=== PATIENT | male | born 1940 | race Caucasian/White ===

== ENCOUNTER 2017-08-14 08:21 | Emergency (ER) | payer MEDICARE, OTHER ==
--- NOTE | 2017-08-14 09:02 | RAD ---
PORTABLE CHEST ONE VIEW: 08/14/2017 at 8:47 a.m. HISTORY: Cough. FINDINGS: The heart size is normal. The aorta is tortuous. There are changes of COPD and old granulomatous di sease. No lobar consolidation, pneumothorax, or pleural effusions are seen. There are post-op gusman es and metallic hardware in the right proximal humerus. IMPRESSION: No acute process. POS: [facility]
[2017-08-14 09:03] LABS: #Basophils 0.1 thou/uL (0.0-0.2); #Eosinphils 0.5 thou/uL (0.0-0.7); #Lymphocytes 1.7 thou/uL (1.20-3.40); #Monocytes 0.8 thou/uL (0.11-0.59); #Neutrophils 7.7 thou/uL (1.40-6.50); %Basophils 0.6 % (0.0-1.0); %Lymphocytes 15.6 % (21.0-51.0); %Monocytes 7.4 % (0.0-10.0); %Neutrophils 71.4 % (42.0-75.0); Mean Corpuscular HGB CONC 32.8 g/dL (32.0-36.0); Mean Corpuscular Hemoglobin 33.5 pg (27.0-31.0); Mean Platelet Volume 5.7 fL (7.4-10.4); Platelet Count 376 thou/uL (130-400); RBC Distribution Width 12.1 % (11.5-14.5); Red Blood Cell (RBC) Count 3.87 mill/uL (4.70-6.10); White Blood Cell (WBC) Count 10.7 thou/uL (4.8-10.8)
[2017-08-14] MEDS ORDERED: Water For Inject, Bacteriostat 30 ML ONE (09:04)
[2017-08-14] MEDS ORDERED: methylPREDNISolone Sod Succ/PF 125 MG/2 ML VIAL ONE (09:04)
[2017-08-14 09:09] LABS: PTT 25.7 SEC (22.9-36.1); Prothrombin Time 13.4 SEC (12.0-14.7)
[2017-08-14 09:17] LABS: Bilirubin Negative (Negative); Blood, Urine Trace (Negative); Clarity CLOUDY (Clear); Glucose, Urine (Dipstick) Negative (Negative); Leukocyte Large (Negative); Nitrite Negative (Negative); Protein, Urine (Dipstick) 30 mg/dL (Neg-Trace); Specific Gravity, Urine 1.012 (1.002-1.036); Urobilinogen 0.2 mg/dL (0.2-1.0); pH, Urine 7.5 (5.0-9.0)
[2017-08-14 09:19] LABS: Bacteria/HPF 4+ HPF (None Seen); Hyaline Casts/LPF 0-3 HYALINE CAST LPF (0-3 Hyaline); Pathc Cast-AUWi Flag 0.67 (0-2.49); RBC/HPF 0-3 HPF (0-3); Squamous Epithelial None Seen HPF (0-3)
[2017-08-14 09:22] LABS: Yeast-AUWi Flag 27.3 (0-25.0)
[2017-08-14 09:25] LABS: ALT (SGPT) 17 U/L (8-55); AST (SGOT) 19 U/L (5-34); Albumin 3.7 g/dL (3.4-4.8); Alkaline Phosphatase 79 U/L (40-150); Anion Gap 15 mmol/L (10-20); BUN (Urea Nitrogen) 12 mg/dL (8.4-25.7); Bilirubin, Total 0.7 mg/dL (0.2-1.2); Calc. Creatinine Clearance 0 mL/min (70-130); Calcium 9.7 mg/dL (7.8-10.44); Carbon Dioxide 30 mmol/L (23-31); Chloride 97 mmol/L (98-107); Estimated GFR-MDRD 79; Globulin 2.7 g/dL (2.4-3.5); Glucose 204 mg/dL (83-110); Lipase 26 U/L (8-78); Potassium 4.6 mmol/L (3.5-5.1); Protein, Total 6.4 g/dL (5.8-8.1); Sodium 137 mmol/L (136-145)
[2017-08-14 09:39] LABS: Yeast-All Forms None Seen HPF (None Seen)
--- NOTE | 2017-08-14 10:26 | CT ---
CT BRAIN NONCONTRAST: DATE: 08/14/2017 TIME: 8:59 a.m. HISTORY: A 76-year-old male status post seizure. COMPARISON: None available. FINDINGS: There are right frontal craniotomy changes. Deep to the right frontal craniotomy, there is a moderat e to large, wedge-shaped region of encephalomalacia and gliosis involving the right frontal lobe. Th e lateral and third ventricles are mildly to moderately dilated. This is presumed to be on an ex vac uo basis due to generalized parenchymal volume loss. There is no mass effect, midline shift, extraax ial fluid collection, or acute intracranial hemorrhage. The upper portions of the paranasal sinuses and the bilateral tympanomastoid cavities are grossly clear. IMPRESSION: 1. No acute intracranial findings. 2. Moderate sized region of old insult in the right frontal lobe, with overlying old right craniotom y changes. [facility] POS: [facility]
== END 2017-08-14 11:32 | disposition home or self-care (01) ==
LOC: ERS 08:21
DX: G40.909 Epilepsy, unspecified, not intractable, without status epilepticus (principal); N39.0 Urinary tract infection, site not specified; J43.9 Emphysema, unspecified; I10 Essential (primary) hypertension; F17.210 Nicotine dependence, cigarettes, uncomplicated; Z85.841 Personal history of malignant neoplasm of brain; Z79.899 Other long term (current) drug therapy
CPT/HCPCS: 36415; 70450; 71010; 80053; 81003; 81015; 83690; 84146; 85025; 85610; 85730; 87077; 87086; 87186; 93005; 94640; 96374; 96375; 99406; J0696; J2930; J7620